=== PATIENT | male | born 1990 | race Caucasian/White ===

== ENCOUNTER 2019-07-12 20:05 | Emergency (ER) | payer BC, SELFPAY ==
[2019-07-12 20:10] VITALS: BP 150/92; PULSE 95; RESP 16; TEMP 37.6; O2SAT 98; BMI 36.8
--- NOTE | 2019-07-12 20:18 | HMH.EDUTC ---
[facility] [place] Clinical Impression: Strep throat Disposition: Home, Self-Care Condition on Discharge: Good Instructions: Sore Throat, DI for Strep Throat, Strep Throat, Strep Throat (Alternative Therapy), Azithromycin, Methylprednisolone Additional Instructions: *Monitor Temp, Over the counter Motrin or Tylenol as directed/as needed Tylenol every 4 hours and Motrin every 6 hours (as long as your family doctor has told you that you can take it) for fever or pain. and straight to ER if unable to lower temp less than 101.0 after medication given *Warm salt water gargles may help to soothe the throat *Throat Lozenges *Warm fluids *Sleep elevated *Humidifier/Vaporizer *If you did not take Penicillin shot or was unable to, start taking antibiotic immediately and make sure that you take it for the FULL length of time although you should start to feel better in 24-48 hours *change toothbrush and toothpaste 24-48 hours after starting to take antibiotics so you do not reinfect yourself Monitor Temp. Tylenol and/or Ibuprofen as needed. ER if fever is no less than 101 despite alternating Tylenol and Ibuprofen * Encourage fluids, water, Gatorade, powerade, pedialyte if /toddler/or child *Cold fluids, popsicles and ice cream may feel good on his throat Follow up IMMEDIATELY for new or worsening symptoms or no Noticeable improvement over the next 48-72 hours. 911 for difficulty breathing or swallowing Prescriptions: methylPREDNISolone [Medrol 4mg tab] 4 mg PO DIRECTED #21 tab Transmission Status: Pending to [facility] # Azithromycin [Z-Demetrius 250mg Tab] 250 mg PO DIRECTED #6 tab Transmission Status: Pending to [facility] # Referrals: Provider,Referral, [Primary Care Provider] - As needed Time of Disposition: 20:25 Medical Decision Making - Felipe Inquiry Pt receiving controlled substance: No Felipe was queried for this patient: No Vital Signs: 07/12/19 20:10 Temperature 99.7 F H Temperature Source Oral Pulse Rate [Right Brachial] 95 H Respiratory Rate 16 Blood Pressure [Right Arm] 150/92 H Blood Pressure Mean [Right Arm] 111 Blood Pressure Source [Right Arm] Automatic Cuff Blood Pressure Position [Right Arm] Sitting 02 Sat by Pulse Oximetry 98 Oxygen Delivery Method Room Air - Lab Data Lab results reviewed: Yes: I reviewed the patient's lab results. [facility] [place] HPI - General Stated complaint: sore throat Time Seen by Provider: 07/12/19 20:18 Mode of Arrival: Ambulatory Source of Information: Patient Limitations: No Limitations Description of Symptoms (Recalled from Triage Doc. by RN): Pt advises he has had a sore throat for 2 days HEENT Symptoms (Recalled from RN notes): No Resp Symptoms (Recalled from RN notes): No Skin Symptoms (Recalled from RN notes): No MS Symptoms (Recalled from RN notes): No Functional Status (Recalled from RN notes): na - History of Present Illness Provider Complaint: Patient states that he has had sore throat since Wednesday States that it has continued to get worse and hurts when he swallows States that yesterday his was having same symptoms and got checked and was dx with strep throat States that this evening his throat was still hurting so he came in to get checked States that had a fever on Wednesday but not sure if he has had one since - Related Data Previous Rx's Medication Instructions Recorded Azithromycin [Z-Demetrius 250mg Tab] 250 mg PO DIRECTED #6 tab 07/12/19 methylPREDNISolone [Medrol 4mg 4 mg PO DIRECTED #21 tab 07/12/19 tab] Allergies Allergy/AdvReac Type Severity Reaction Status Date / Time amoxicillin [From Augmentin] Allergy Mild Verified 07/12/19 20:18 clavulanic acid Allergy Mild Verified 07/12/19 20:18 [From Augmentin] cefaclor [From Ceclor] Allergy Verified 07/12/19 20:21 - Worker's Comp Is this a Worker's Comp case?: No [facility] History - Hepatitis A Screen Drug use history?: No H
[2019-07-12 20:23] LABS: UTC Strep Screen (Rapid) Positive (Negative)
[2019-07-12 20:31] VITALS: BP 150/90; PULSE 80; RESP 16; TEMP 36.7; O2SAT 98
== END 2019-07-12 20:31 | disposition home or self-care (01) ==
PROVIDERS: Emergency Provider Nurse Practitioner
DX: J02.0 Streptococcal pharyngitis (principal)
CPT/HCPCS: 87880; 99201

== ENCOUNTER 2020-06-29 18:52 | Emergency (ER) | payer BC, SELFPAY ==
[2020-06-29 18:58] VITALS: BP 114/74; PULSE 85; RESP 17; TEMP 38.7; O2SAT 97; BMI 33.1
[2020-06-29 19:08] VITALS: BP 114/74; PULSE 85; RESP 17; TEMP 38.7; O2SAT 97
--- NOTE | 2020-06-29 19:24 | HMH.EDUTC ---
[facility] [place] Disposition Clinical Impression: Viral syndrome, Bronchitis Disposition: Home, Self-Care Condition on Discharge: Good Instructions: DI for Viral Syndrome Additional Instructions: Drink plenty of fluids. Take tylenol for pain or fever. Return if you begin to have difficulty breathing. Follow up with your regular doctor. GO TO THE ER FOR ANY WORSENING SYMPTOMS Prescriptions: Ondansetron [Zofran 4mg ODT] 4 mg PO Q8HP PRN #12 tab.rapdis PRN Reason: Nausea Transmission Status: Received by [facility] # Azithromycin [Z-Demetrius 250mg Tab*] 250 mg PO UD DOSE PK #6 tab Transmission Status: Received by [facility] # Referrals: Provider,Referral, MD [Primary Care Provider] - Time of Disposition: 19:41 Medical Decision Making - Medical Records Medical records reviewed: No: I reviewed the patient's medical records. - Felipe Inquiry Pt receiving controlled substance: No Vital Signs: 06/29/20 18:58 06/29/20 19:08 Temperature 101.6 F H 101.6 F H Temperature Source Oral Pulse Rate 85 Pulse Rate [Left] 85 Respiratory Rate 17 17 Blood Pressure 114/74 Blood Pressure [Right Arm] 114/74 Blood Pressure Mean [Right Arm] 87 Blood Pressure Source [Right Arm] Automatic Cuff Blood Pressure Position [Right Arm] Sitting 02 Sat by Pulse Oximetry 97 Oxygen Delivery Method Room Air - Lab Data Lab results reviewed: Yes: I reviewed the patient's lab results. Lab Results 06/29/20 19:30: Influenza Type A Ag Negative, Influenza Type B Ag Negative [facility] [place] HPI - General Stated complaint: upset stomach sore throat possible allergies Time Seen by Provider: 06/29/20 19:24 Mode of Arrival: Ambulatory Source of Information: Patient Limitations: No Limitations Description of Symptoms (Recalled from Triage Doc. by RN): Upset stomach and allergies HEENT Symptoms (Recalled from RN notes): No Resp Symptoms (Recalled from RN notes): No Skin Symptoms (Recalled from RN notes): No MS Symptoms (Recalled from RN notes): No Functional Status (Recalled from RN notes): wnl - History of Present Illness Provider Complaint: He states that for the past 3 days he has had fever, chills, nausea/vomiting/diarrhea. He had a negative covid test at his job yesterday. He has not had a flu shot. - Related Data Previous Rx's Medication Instructions Recorded Azithromycin [Z-Demetrius 250mg Tab] 250 mg PO DIRECTED #6 tab 07/12/19 methylPREDNISolone [Medrol 4mg 4 mg PO DIRECTED #21 tab 07/12/19 tab] Azithromycin [Z-Demetrius 250mg Tab*] 250 mg PO UD DOSE PK #6 tab 06/29/20 Ondansetron [Zofran 4mg ODT] 4 mg PO Q8HP PRN #12 tab.rapdis 06/29/20 Allergies Allergy/AdvReac Type Severity Reaction Status Date / Time amoxicillin [From Augmentin] Allergy Mild Verified 06/29/20 19:07 clavulanic acid Allergy Mild Verified 06/29/20 19:07 [From Augmentin] cefaclor [From Ceclor] Allergy Verified 06/29/20 19:07 - Worker's Comp Is this a Worker's Comp case?: No H History - Hepatitis A Screen Drug use history?: No High risk sexual behaviors?: No History of sexually transmitted infection?: No Currently employed?: No Childcare worker?: No Do you have indoor plumbing?: Yes Do you have electricity?: Yes Attestation statement:: This patient has been screened for Hepatitis A risk factors. I have reviewed the patient's past medical history: Yes Laterality Cases: Bilateral: Myringotomy (Ear Tubes) - Social History Smoking Status: Never smoker Alcohol Intake: never Occupational Status: other ROS Obtained: Yes All systems reviewed & no additional complaints - Constitutional Constitutional: Reports chills, Reports fever(s), Reports poor appetite, Reports malaise - Eyes Eyes: Denies eye discharge - ENT Ears, Nose, Mouth, and Throat: Denies dizziness, Denies otalgia, Denies sore throat - Cardiovascular Cardiovascular: Denies chest pain - Respiratory Respiratory: Re
[2020-06-29 19:42] LABS: UTC Influenza A Antigen Negative (Negative)
[2020-06-29 19:43] LABS: UTC Influenza B Antigen Negative (Negative)
== END 2020-06-29 19:43 | disposition home or self-care (01) ==
PROVIDERS: Emergency Provider Nurse Practitioner Family
DX: J20.9 Acute bronchitis, unspecified (principal); B34.9 Viral infection, unspecified
CPT/HCPCS: 87804; 99202; G0463

== ENCOUNTER 2020-07-09 12:50 | Emergency (ER) | payer BC, SELFPAY ==
[2020-07-09 12:54] VITALS: BP 113/71; PULSE 60; RESP 17; TEMP 36.6; O2SAT 99; BMI 33.7
--- NOTE | 2020-07-09 13:02 | XR_ITS ---
PROCEDURE: XR KNEE LT 3V CLINICAL INDICATION: pain COMPARISON: No exams were available for comparison FINDINGS: No fracture or dislocation. No lytic or blastic change. There is normal mineralization. There are mild osteoarthritic changes of the medial compartment. Slight increased density is present in the suprapatellar region suggesting small knee joint effusion. Other findings:None. IMPRESSION: Mild osteoarthritis with small knee joint effusion Dictated by: To Eagle MD 07/09/2020 13:16 To Eagle MD in [place] 07/09/2020 13:16
--- NOTE | 2020-07-09 13:41 | HMH.EDUTC ---
[facility] [place] Clinical Impression: Effusion, left knee Left knee pain Qualifiers: Chronicity: acute Qualified Code(s): M25.562 - Pain in left knee Disposition: Home, Self-Care Condition on Discharge: Good Instructions: DI for Knee Pain Additional Instructions: Rest the extremity, apply ice for 15 minutes as tolerated three or four times per day, Wear the tomás wrap for compression, Elevate the extremity as tolerated while you are resting. Take ibuprofen for pain. I sent in a prescription to your pharmacy. Follow up with Dr. Locke (orthopedics). I put in a referral but you need to call his office and schedule an appointment. Follow up with your regular doctor. GO TO THE ER FOR ANY WORSENING SYMPTOMS Prescriptions: Ibuprofen [Ibuprofen 800mg Tablet] 800 mg PO Q8HP PRN #30 tab PRN Reason: Moderate Pain Transmission Status: Received by [facility] #[id number] Referrals: Augie Amaral MD [Primary Care Provider] - Boby Locke MD [Staff Physician] - Forms: Work/School Release Time of Disposition: 13:55 Medical Decision Making - Medical Records Medical records reviewed: No: I reviewed the patient's medical records. - Felipe Inquiry Pt receiving controlled substance: No Vital Signs: 07/09/20 12:54 Temperature 97.8 F Temperature Source Oral Pulse Rate [Right] 60 Respiratory Rate 17 Blood Pressure [Right Arm] 113/71 Blood Pressure Mean [Right Arm] 85 Blood Pressure Source [Right Arm] Automatic Cuff Blood Pressure Position [Right Arm] Sitting 02 Sat by Pulse Oximetry 99 Oxygen Delivery Method Room Air - Radiology Data #1 Image(s): Knee Image Reviewed: Yes I reviewed the patient's radiology image, Yes I have reviewed radiologist's interpretation Preliminary Findings: Abnormal, No Fracture Seen PROCEDURE: XR KNEE LT 3V CLINICAL INDICATION: pain COMPARISON: No exams were available for comparison FINDINGS: No fracture or dislocation. No lytic or blastic change. There is normal mineralization. There are mild osteoarthritic changes of the medial compartment. Slight increased density is present in the suprapatellar region suggesting small knee joint effusion. Other findings:None. IMPRESSION: Mild osteoarthritis with small knee joint effusion Dictated by: To Eagle MD 07/09/2020 13:16 To Eagle MD in [place] 07/09/2020 13:16 [facility] [place] - General Stated complaint: left knee pain Time Seen by Provider: 07/09/20 13:00 Mode of Arrival: Ambulatory Source of Information: Patient Limitations: No Limitations Description of Symptoms (Recalled from Triage Doc. by RN): pt states his L knee was all swollen on wednesday. no injury noted. knee does not appear swollen at this time but is painful. HEENT Symptoms (Recalled from RN notes): No Resp Symptoms (Recalled from RN notes): No Skin Symptoms (Recalled from RN notes): No MS Symptoms (Recalled from RN notes): Yes (L knee pain) Functional Status (Recalled from RN notes): na - History of Present Illness Provider Complaint: He c/o left knee pain for the past 2 days. He denies any known injury. - Related Data Previous Rx's Medication Instructions Recorded Azithromycin [Z-Demetrius 250mg Tab] 250 mg PO DIRECTED #6 tab 07/12/19 methylPREDNISolone [Medrol 4mg 4 mg PO DIRECTED #21 tab 07/12/19 tab] Azithromycin [Z-Demetrius 250mg Tab*] 250 mg PO UD DOSE PK #6 tab 06/29/20 Ondansetron [Zofran 4mg ODT] 4 mg PO Q8HP PRN #12 tab.rapdis 06/29/20 Ibuprofen [Ibuprofen 800mg 800 mg PO Q8HP PRN #30 tab 07/09/20 Tablet] Allergies Allergy/AdvReac Type Severity Reaction Status Date / Time amoxicillin [From Augmentin] Allergy Mild Verified 07/09/20 13:03 clavulanic acid Allergy Mild Verified 07/09/20 13:03 [From Augmentin] cefaclor [From Ceclor] Allergy Verified 07/09/20 13:03 - Worker's Comp Is this a Worker's Comp case?: No [facility] History - Hepatitis A Screen Drug use history?: N
[2020-07-09 14:08] VITALS: BP 000/00; PULSE 0; RESP 18; TEMP -7.7; TEMP 18
== END 2020-07-09 14:07 | disposition home or self-care (01) ==
PROVIDERS: Emergency Provider Nurse Practitioner Family; PCP Family Medicine
DX: M25.462 Effusion, left knee (principal); M25.562 Pain in left knee
CPT/HCPCS: 73562; 99202; G0463

== ENCOUNTER → 2020-07-29 10:57 | Outpatient (CLI) | payer BC, SELFPAY ==
--- NOTE | 2020-07-29 10:57 | MR_ITS ---
PROCEDURE: MR KNEE LT WO CON CLINICAL INDICATION: LT knee pain Knee instability x2wks. No recent injury or trauma. Entire knee pain. Posterior knee swelling. Prior x-ray 07/09/20. COMPARISON: CR XR KNEE LT 3V from 07/09/2020 TECHNIQUE: Routine multiplanar multi echo sequences are performed without gadolinium enhancement. FINDINGS: The cruciate ligaments, collateral ligaments, patellar tendon, and quadriceps tendon appear intact. There is an area increased T1 and increased T2 signal involving the lateral and distal aspect of the quadriceps tendon consistent with an area of tendinopathy/tendinosis possibly due to an old partial tear. An acute quadriceps tendon tear is not felt to be present at this time. There is some minimal thinning of the patellar cartilage but it has a smooth appearance. Medial meniscus has an unremarkable appearance.. There is increased T2 signal along the posterior aspect the posterior horn of the lateral meniscus. This increased T2 signal blends with the posterior horn of the lateral meniscus posteriorly. Cannot exclude a meniscal tear at this area. There is a small knee joint effusion and there is a fairly prominent Betancourt's cyst. The Betancourt's cyst measures 9.5 cm cephalad caudad and 1.6 cm AP. No bone bruise or fracture. IMPRESSION: 1. Questionable tear of the posterior horn of the lateral meniscus. 2. Knee joint effusion with prominent Betancourt's cyst. Dictated by: To Eagle MD 07/30/2020 10:54 To Eagle MD in [place] 07/30/2020 10:54
== END ==
PROVIDERS: PCP Family Medicine; Visit Provider Orthopaedic Surgery
DX: M25.562 Pain in left knee (principal)
CPT/HCPCS: 73721

== ENCOUNTER 2021-05-30 09:05 | Emergency (ER) | payer BC, SELFPAY ==
[2021-05-30 09:28] VITALS: BP 143/94; PULSE 83; RESP 15; TEMP 37; O2SAT 98; BMI 34.7
--- NOTE | 2021-05-30 09:36 | HMH.EDUTC ---
[facility] [place] Clinical Impression: URI (upper respiratory infection) Qualifiers: URI type: unspecified URI Qualified Code(s): J06.9 - Acute upper respiratory infection, unspecified Disposition: Home, Self-Care Condition on Discharge: Good Instructions: DI for Strep Throat, Sore Throat, Azithromycin Additional Instructions: *Monitor Temp, Over the counter Motrin or Tylenol as directed/as needed Tylenol every 4 hours and Motrin every 6 hours (as long as your family doctor has told you that you can take it) for fever or pain. and straight to ER if unable to lower temp less than 101.0 after medication given *Warm salt water gargles may help to soothe the throat *Throat Lozenges *Warm fluids like tea with honey may help to soothe the throat *Sleep elevated *Humidifier/Vaporizer Your throat swab was sent for culture. Those results are typically sent to your primary care. Be sure to follow up in 2-3 days with your family doctor/primary care physician if no improvement so they can review those result and treat if necessary. If you don?t have a primary care doctor, I recommend you get one but in the mean time, you will have to return to a walk in clinic Follow up IMMEDIATELY for new or worsening symptoms or no Noticeable improvement over the next 48-72 hours. 911 for difficulty breathing or swallowing Prescriptions: methylPREDNISolone [Medrol 4mg tab] 4 mg PO DIRECTED #21 tab Transmission Status: Pending to [facility] # Azithromycin [Z-Demetrius 250mg Tab] 250 mg PO DIRECTED #6 tab Transmission Status: Pending to [facility] # Referrals: Augie Amaral MD [Primary Care Provider] - As needed Forms: Work/School Release Time of Disposition: 10:17 Medical Decision Making - Felipe Inquiry Pt receiving controlled substance: No Felipe was queried for this patient: No Vital Signs: 05/30/21 09:28 Temperature 98.6 F Temperature Source Oral Pulse Rate [Left] 83 Respiratory Rate 15 Blood Pressure [Right Arm] 143/94 H Blood Pressure Mean [Right Arm] 110 02 Sat by Pulse Oximetry 98 - Lab Data Lab results reviewed: Yes: I reviewed the patient's lab results. Lab Results 05/30/21 09:28: Group A Strep Rapid Negative Orders (Tests/Meds): ORDERS Category Date Time Status Strep Screen Confirmation Stat Micro 05/30/21 09:28 Received [facility] [place]PI - General Stated complaint: sore throat Time Seen by Provider: 05/30/21 09:36 Mode of Arrival: Ambulatory Source of Information: Patient Limitations: No Limitations Description of Symptoms (Recalled from Triage Doc. by RN): pt c/o a sore throat x1 wk. HEENT Symptoms (Recalled from RN notes): Yes Resp Symptoms (Recalled from RN notes): No Skin Symptoms (Recalled from RN notes): No MS Symptoms (Recalled from RN notes): No Functional Status (Recalled from RN notes): wnl - History of Present Illness Provider Complaint: Patient states that he has been having sore throat for about a week States that his and child has been sick too and thinks he may have strep throat so he came in to get checked - Related Data Previous Rx's Medication Instructions Recorded Ibuprofen [Ibuprofen 800mg 800 mg PO Q8HP PRN #30 tab 07/09/20 Tablet] Azithromycin [Z-Demetrius 250mg Tab] 250 mg PO DIRECTED #6 tab 05/30/21 methylPREDNISolone [Medrol 4mg 4 mg PO DIRECTED #21 tab 05/30/21 tab] Allergies Allergy/AdvReac Type Severity Reaction Status Date / Time amoxicillin [From Augmentin] Allergy Mild Verified 08/02/20 09:01 clavulanic acid Allergy Mild Verified 08/02/20 09:01 [From Augmentin] cefaclor [From Ceclor] Allergy Verified 08/02/20 09:01 - Worker's Comp Is this a Worker's Comp case?: No [facility] History - Hepatitis A Screen Drug use history?: No High risk sexual behaviors?: No History of sexually transmitted infection?: No Currently employed?: No Childcare worker?: No Do you have indoor plumbing?: Yes
[2021-05-30 10:06] LABS: Strep Scrn Group A (Rapid) Negative (Negative)
[2021-05-30 10:32] VITALS: BP 143/94; PULSE 83; RESP 15; TEMP 37
== END 2021-05-30 10:34 | disposition home or self-care (01) ==
PROVIDERS: Emergency Provider Nurse Practitioner; PCP Family Medicine
DX: J06.9 Acute upper respiratory infection, unspecified (principal); Z88.1 Allergy status to other antibiotic agents
CPT/HCPCS: 87430; 99212; G0463

== ENCOUNTER 2022-02-05 17:41 | Emergency (ER) | payer BC, SELFPAY ==
[2022-02-05 19:20] VITALS: BP 151/89; PULSE 102; RESP 20; TEMP 38.2; O2SAT 100; BMI 34.9
[2022-02-05 19:26] LABS: Adenovirus,PCR Not Detected (NotDetected); Bordetella Pertussis Not Detected (NotDetected); Chlamydophila Pneumoniae, PCR Not Detected (NotDetected); Coronavirus 19, PCR Not Detected (NotDetected); Coronavirus 229E Not Detected (NotDetected); Coronavirus NL63 Not Detected (NotDetected); Coronavirus OC43 Not Detected (NotDetected); Coronovirus HKU1,PCR Not Detected (NotDetected); Human Metapneumovirus Not Detected (NotDetected); Influenza A, PCR Not Detected (NotDetected); Influenza AH1, 2009 Not Detected (NotDetected); Influenza AH1, PCR Not Detected (NotDetected); Influenza AH3,PCR Not Detected (NotDetected); Influenza B, PCR Not Detected (NotDetected); Parainfluenza 1, PCR Not Detected (NotDetected); Parainfluenza 2, PCR Not Detected (NotDetected); Parainfluenza 3, PCR Not Detected (NotDetected); Parainfluenza 4, PCR Not Detected (NotDetected); Respiratory Syncytial Virus Not Detected (NotDetected); Rhinovirus/Enterovirus Not Detected (NotDetected)
[2022-02-05 19:27] LABS: Mycoplasma Pneumoniae, PCR Not Detected (NotDetected)
--- NOTE | 2022-02-05 19:37 | EXP.UTC ---
Discharge Plan Disposition Patient Disposition: Home, Self-Care Condition: Good Prescriptions Prescriptions: New lizdpthkhcqkfru-[id number]-VU [Bromfed DM] 2-30-10 mg/5 mL Syrup 5 ml PO Q6H PRN (Reason: Cough) Qty: 240 0RF oseltamivir [Tamiflu] 75 mg capsule 75 mg PO BID Qty: 10 0RF methylprednisolone 4 mg Tablets,Dose Pack 4 mg PO DIRECTED Qty: 21 0RF Referrals Follow up/Referrals: Provider,Referral, MD [Primary Care Provider] - See instructions Activity Restrictions/Add. Instructions Additional Instructions/Restrictions: Drink plenty of fluids. Take tylenol or ibuprofen for pain or fever. Take the medications as directed. Follow up with your regular doctor. GO TO THE ER FOR ANY WORSENING SYMPTOMS Clinical Impressions Clinical Impression: Viral syndrome Stand Alone Forms Stand Alone Forms: Work/School Release Instructions Patient Instructions: DI for Influenza -- Adult, Oseltamivir Discharge ED Provider: Apolinar Almaguer [facility] [place] General Stated complaint: sore throat, cough, congestion, headache, body ach Mode of Arrival: Ambulatory Source of Information: Patient Limitations: No Limitations Time Seen by Provider: 02/05/22 19:36 Description of Symptoms (Recalled from Triage Doc. by RN): PATIENT C/O HEADACHE, BODY ACHES, CHILLS AND FEVER HEENT Symptoms (Recalled from RN notes): Yes Resp Symptoms (Recalled from RN notes): No Skin Symptoms (Recalled from RN notes): No MS Symptoms (Recalled from RN notes): No Functional Status (Recalled from RN notes): WNL History of Present Illness Provider Complaint: He state that for the past 2 days he has had fever, chills, body aches, fever and malaise. Related Data Previous Rx's Medication Instructions Recorded adxffedpcskjqtc-dkwkzmroponiped-XC 5 ml PO Q6H PRN Cough #240 mL 02/05/22 2 mg-30 mg-10 mg/5 mL oral syrup (Bromfed DM) methylprednisolone 4 mg tablets in 4 mg PO DIRECTED #21 tabs 02/05/22 a dose pack oseltamivir 75 mg capsule (Tamiflu) 75 mg PO BID #10 caps 02/05/22 Allergies Allergy/AdvReac Type Severity Reaction Status Date / Time amoxicillin [From Augmentin] Allergy Mild Verified 08/02/20 09:01 clavulanic acid Allergy Mild Verified 08/02/20 09:01 [From Augmentin] cefaclor [From Ceclor] Allergy Verified 08/02/20 09:01 Worker's Comp Is this a Worker's Comp case?: No [facility] Disclaimer: The information contained in this section may have been updated after the patient was seen, as this information can be updated by other users. Medical History Asthma Surgical History History of tympanostomy tube placement Social History Smoking Status: Never smoker second hand exposure: No alcohol intake: current current occupational status: employed Travel in the last 8 weeks: None ROS Obtained: Yes All systems reviewed & no additional complaints except as documented Constitutional Constitutional: Reports chills and Reports fever(s) Eyes Eyes: Denies eye discharge ENT Ears, Nose, Mouth, and Throat: Reports as per HPI Cardiovascular Cardiovascular: Denies chest pain Respiratory Respiratory: Denies chest congestion and Reports cough Gastrointestinal Gastrointestingal: Reports nausea; Denies abdominal pain, constipation, cramping, diarrhea or vomiting Musculoskeletal Musculoskeletal: Denies arthralgias Integumentary/Breasts Skin/Breast: Denies rash Neurologic Neurologic: Denies paresthesias Physical Exam General General appearance: alert and in no apparent distress Head Head exam: atraumatic, normocephalic and normal inspection Eye Eye exam: Present normal appearance, PERRL and EOMI ENT ENT exam: Present normal exam, normal oropharynx, mucous membranes moist, TM's normal bilaterally and normal external ear exam Neck Neck exam: Pr
[2022-02-05 19:40] VITALS: BP 151/89; PULSE 102; RESP 20; TEMP 38.2; O2SAT 100
== END 2022-02-05 20:05 | disposition home or self-care (01) ==
PROVIDERS: Emergency Provider Nurse Practitioner Family
DX: B34.9 Viral infection, unspecified (principal)
CPT/HCPCS: 87581; 87632; 87798; 99212; C9803; G0463; U0003; U0005